=== PATIENT | female | born 1970 | race Caucasian/White ===

== ENCOUNTER 2022-06-06 10:35 | Outpatient (CLI) | payer BC, SELFPAY ==
[2022-06-06 13:50] LABS: Chloride* 103 mmol/L (96-114)
[2022-06-06 13:51] LABS: Albumin* 4.4 g/dL (3.3-5.0); Potassium* 4.4 mmol/L (3.6-5.1); Sodium* 139 mmol/L (135-149)
[2022-06-06 13:53] LABS: Aspartate Amino Transferase* 23 U/L (12-35); Bilirubin Total* 0.3 mg/dL (0.1-1.5); Carbon Dioxide* 28 mmol/L (20-32); Creatinine* 0.7 mg/dL (0.5-1.5); Estimated Glomerular Filt Rate 105 ml/min
[2022-06-06 13:54] LABS: Alanine Aminotransferase* 24 U/L (4-35); Alkaline Phosphatase* 71 U/L (40-150); Blood Urea Nitrogen* 12 mg/dL (7-30); Calcium* 9.5 mg/dL (8.4-10.6); Glucose* 111 mg/dL (60-115); Total Protein* 7.1 g/dL (6.0-8.3)
== END 2022-06-06 10:36 | disposition home or self-care (01) ==
PROVIDERS: PCP Family Medicine; Visit Provider Dermatology
DX: L40.9 Psoriasis, unspecified (principal)
CPT/HCPCS: 80053; 86480

== ENCOUNTER 2022-06-17 08:45 | Outpatient (CLI) | payer BC, SELFPAY ==
--- NOTE | 2022-06-17 10:44 | W.ANESCHARGE ---
Anesthesia Charges Start Date/Time Anesthesia Start Date: 06/17/22 Anesthesia Start Time: 10:15 Stop Date/Time Anesthesia Stop Date: 06/17/22 Anesthesia Stop Time: 10:40 Summary Emergency: No
--- NOTE | 2022-06-17 11:06 | W.ANESCHARGE ---
Anesthesia Charges Start Date/Time Anesthesia Start Date: 06/17/22 Anesthesia Start Time: 10:15 Stop Date/Time Anesthesia Stop Date: 06/17/22 Anesthesia Stop Time: 10:40 Summary Emergency: No
== END 2022-06-17 08:46 | disposition home or self-care (01) ==
PROVIDERS: PCP Family Medicine; Visit Provider Internal Medicine Gastroenterology
DX: Z12.11 Encounter for screening for malignant neoplasm of colon (principal); K52.9 Noninfective gastroenteritis and colitis, unspecified
CPT/HCPCS: 00811; 45380; 88305

== ENCOUNTER 2023-06-03 10:42 | Outpatient (CLI) | payer BC, SELFPAY | END 2023-06-03 10:43 | disposition home or self-care (01) | LOC: NFLDREF 06-04 15:14 | PROVIDERS: PCP Family Medicine; Referring Provider Family Medicine; Visit Provider Dermatology | DX: L30.9 Dermatitis, unspecified (principal) | CPT/HCPCS: 80048 ==

== ENCOUNTER 2023-12-01 10:10 | Outpatient (CLI) | payer BC, SELFPAY | END 2023-12-01 10:11 | disposition home or self-care (01) | LOC: NFLDREF 12-03 10:08 | PROVIDERS: PCP Family Medicine; Referring Provider Family Medicine; Visit Provider Dermatology | DX: R74.01 Elevation of levels of liver transaminase levels (principal) | CPT/HCPCS: 80076 ==